=== PATIENT | male | born 1955 | race Caucasian/White ===

== ENCOUNTER → 2016-08-27 | Outpatient (CLI) | payer BC | END | disposition home or self-care (01) | LOC: CT 08:51 | DX: K57.30 Diverticulosis of large intestine without perforation or abscess without bleeding (principal); K42.9 Umbilical hernia without obstruction or gangrene; K76.0 Fatty (change of) liver, not elsewhere classified; M47.895 Other spondylosis, thoracolumbar region; N20.0 Calculus of kidney ==

== ENCOUNTER → 2016-09-24 | Outpatient (CLI) | payer BC ==
[2016-09-25 08:12] LABS: MICRO ALBUMIN/CRE RATIO 28.7 (0.0-30.0)
== END ==
LOC: LAB 14:52 → CARD 15:00
PROVIDERS: Family Medicine
DX: J40 Bronchitis, not specified as acute or chronic (principal); J92.9 Pleural plaque without asbestos; R80.9 Proteinuria, unspecified

== ENCOUNTER → 2016-10-01 | Outpatient (CLI) | payer BC ==
[2016-10-02 05:09] LABS: MICROALBUMIN/CRT RATIO 14.8 (0.0-30.0)
== END | disposition home or self-care (01) ==
LOC: LAB 11:38
PROVIDERS: Family Medicine Adult Medicine
DX: R80.9 Proteinuria, unspecified (principal)

== ENCOUNTER → 2016-10-20 | Outpatient (CLI) | payer BC ==
[~2016-10-20] MED LIST: ANDROGEL75 G2 SQ; FENOFIBRATE50 MG PO; LISINOPRIL20 MG PO; NITROSTAT0.3 M1 SL; NORCO 10-325 T1 EACH PO; NOVOLOG MI100 UNIT/2 SQ; OMEPRAZOLE40 MG PO; ROPINIROLE HYDRO1 MG PO
--- NOTE | ~2016-10-20 | ST ---
[place], [place] EXERCISE STRESS TEST REPORT NAME: CLOVIS CASAREZ UNIT #: [id number] ROOM: DOCTOR: ROCKY SPIVEY,NAOMI BIRTHDATE: [birth year] DOS: 10/20/2016 REASON FOR TEST: Evaluation for chest pain. REFERRING PHYSICIAN: Dr. Dimitrios Cruz. PHYSICAL EXAMINATION NECK: Supple. LUNGS: Clear anteriorly. HEART: Regular rhythm. PROTOCOL: Lexiscan protocol. Maximum heart rate 112. Peak blood pressure 135/64. SYMPTOMS: The patient is chest pain free. EKG: Resting EKG shows sinus rhythm. Stress EKG showed no ischemia, no arrhythmias. CONCLUSION: Clinically, the patient is chest pain free. EKG nonischemic and post-stress complications, none. The patient received total of 0.4 mg Lexiscan. NAOMI HIDALGO MD CM:STRESS:EXERCISE STRESS TEST REPORT [id number] NAOMI HIDALGO MD
[2016-10-20 08:54] LABS: FREE T4 0.98 ng/dl (0.76-1.46)
[2016-10-20 09:00] LABS: THYROID STIM HORMONE (HS) 1.81 uIU/ml (0.358-4.75)
== END | disposition home or self-care (01) ==
LOC: LAB 04:37 → CARD 04:37
PROVIDERS: Internal Medicine Cardiovascular Disease
DX: R07.89 Other chest pain (principal); R00.0 Tachycardia, unspecified; R94.31 Abnormal electrocardiogram [ECG] [EKG]

== ENCOUNTER → 2021-10-30 | Outpatient (CLI) | payer MEDICARE | END | disposition home or self-care (01) | LOC: LAB 10:46 | PROVIDERS: ATTEND Family Medicine | DX: R06.02 Shortness of breath (principal) ==